=== PATIENT | female | born 1960 | race Caucasian/White ===

== ENCOUNTER 2020-10-05 17:03 | Inpatient (IN) ==
[2020-10-05] MEDS ORDERED: MoRPHine SULFATE 4 MG/ML 1 ML CARP\\VIAL IV STA (17:30)
[2020-10-05] MEDS ORDERED: ONDANSETRON INJ 2 MG/ML 2 ML VIAL IV STA (17:30)
[2020-10-05] MEDS ORDERED: SODIUM CHLORIDE 0.9% 1000ML 1,000 ML IV ONE (17:38)
--- NOTE | 2020-10-05 17:38 | Emergency Department Note ---
History of Present Illness General Chief complaint: Kidney Stone Stated complaint: KIDNEY STONE - PAIN IN SIDE Time Seen by Provider: 10/05/20 17:15 History of Present Illness Maximum Pain Intensity: 8 60-year-old female who presents emergency department with complaint of intermittent right flank pain, urinary discomfort and fever. The patient reports that she developed flank pain approximately 2 weeks ago. It lasted for a few days, then improved. 2 days ago, she reported that the pain came back and was much worse. She has had chills and a home temperature of 102.4 F. She reports urinary frequency and dysuria, but denies any significant nausea or vomiting. The patient does report a remote history of a kidney stone, and reports that this feels similar. She is status post cholecystectomy and total abdominal hysterectomy. As far as she knows, she still has her appendix. She denies any significant alleviating or aggravating factors for the pain, and currently rates her discomfort an 8 out of 10. Home Medications Medication Instructions Recorded Confirmed Type aspirin [Aspirin Low Dose] 81 mg PO DAILY 10/05/20 10/05/20 History atorvastatin 20 mg PO DAILY 10/05/20 10/05/20 History Allergies Allergy/AdvReac Type Severity Reaction Status Date / Time No Known Allergies Allergy Unverified 10/05/20 20:58 Past Med/Surg History Medical History Kidney stones Surgical History Status post total abdominal hysterectomy Social History Smoking Status: Current every day smoker Tobacco Type: Cigarettes Preferred Language: [place] marital status: Current Living Situation: Spouse current occupational status: employed Feels Safe at Home: Yes Review of Systems 10 system review was performed and was negative except for pertinent positives and negatives as indicated in history of present illness Physical Exam Vital Signs Vital Signs - 24 hr 10/05/20 17:06 10/05/20 20:00 10/05/20 20:10 Temperature 36.9 C Temperature Source Temporal Artery Scan Pulse Rate 112 H Pulse Rate from SpO2 Sensor Respiratory Rate 18 Respiratory Effort / Characteristics Non-Labored Spontaneous Respiratory Depth Normal Respiratory Pattern Regular Blood Pressure 135/82 Blood Pressure Mean 99 Pulse Oximetry 94 96 Oxygen Delivery Method Room Air Room Air Sepsis Recent Fever Within 48 Hours No Sepsis New/Unexplained Change in Mental Status N/A Sepsis Action Taken by Nursing No Action Required 10/05/20 21:10 Temperature Temperature Source Pulse Rate 91 H Pulse Rate from SpO2 Sensor 91 H Respiratory Rate 20 Respiratory Effort / Characteristics Respiratory Depth Respiratory Pattern Blood Pressure 118/67 Blood Pressure Mean 84 Pulse Oximetry 94 Oxygen Delivery Method Room Air Sepsis Recent Fever Within 48 Hours Sepsis New/Unexplained Change in Mental Status Sepsis Action Taken by Nursing CONSTITUTIONAL: Healthy and well nourished. Patient appears in mild to moderate discomfort. HEENT: Normocephalic, atraumatic. No scleral icterus or conjunctival injection/pallor. NECK: Full active range of motion without discomfort. No nuchal rigidity. LYMPHATICS: No cervical chain adenopathy. RESPIRATORY: Clear to auscultation bilaterally with no wheezing, crackles, rhonchi or stridor. CARDIOVASCULAR: Regular rate and rhythm with no murmurs, rubs or gallops. GASTROINTESTINAL: Bowel sounds present in all quadrants. Abdomen is soft and n ontender to palpation without McBurney's point tenderness, rigidity, guarding or rebound. Negative CVA tenderness. MUSCULOSKELETAL: Full range of motion of all joints without discomfort. No tenderness to palpation through the ribs or thoracolumbar paraspinous muscles. Negative logroll of the right hip, and negative straight leg raise. INTEGUMENTARY: No rash or other significant dermatologic conditions noted. HEMATOLOGIC: No ecchymosis or petechiae. PSYCHIATRIC: Positive affect. NEUROLOGIC: No focal neurologic deficits noted. Course Course Patient history and physical exam were performed. Nurses notes were reviewed. Vital signs were reviewed, showing a mild tachycardia of 112 bpm. The patient is otherwise afebrile and normotensive. IV access was established, and labs were drawn. The patient was hydrated with a liter of normal saline, and administered IV morphine and Zofran for pain. Review of labs shows a significant leukocytosis with a white count of 31,800, left shift and 9% bands. Patient is mildly hypokalemic at 3.4. Creatinine is 1.54, LFTs and lipase are normal. Urinalysis shows 2+ proteinuria, 2+ hematuria, leukocyte esterases and elevated white count and bacteria. There was moderate urine contamination with 5-10 epithelial cells. Urine cultures are pending. Noncontrast CT of the abdomen and pelvis is suggestive of pyelonephritis without evidence for obstructive uropathy or ureteral calculus. No other acute intra-abdominal findings are noted. Findings were discussed with the patient, as well as Dr. Modi, ED attending physician, who recommended Rocephin 1 g IV infusion, as well as additional blood cultures, lactate level and IV hydration. An order was placed for IV Rocephin and an additional liter of normal saline, along with blood cultures. Lactate level was normal. Procalcitonin is significantly elevated at 22.65. The patient reported adequate pain and nausea control. The case was further discussed with Dr. Dixon, [facility] hospitalist, who came to the emergency department for further evaluation. Please see his dictation for further treatment and final disposition. Administered Medications Discontinued Medications Sodium Chloride (Nss 1000ml) 1,000 mls @ 999 mls/hr IV .Q1H1M ONE Stop: 10/05/20 18:38 Last Infusion: 10/05/20 21:50 Dose: 0 mls/hr Documented by: [id number] Admin: 10/05/20 20:09 Dose: 999 mls/hr Documented by: [id number] Ceftriaxone Sodium (Rocephin) 1,000 mg in 50 mls @ 100 mls/hr IV NOW STA Stop: 10/05/20 21:59 Last Admin: 10/05/20 22:40 Dose: 100 mls/hr Documented by: [id number] Sodium Chloride (Nss 1000ml) 1,000 mls @ 999 mls/hr IV .Q1H1M STA Stop: 10/05/20 22:34 Last Admin: 10/05/20 22:40 Dose: 999 mls/hr Documented by: [id number] Morphine Sulfate (Morphine Sulfate 4 Mg/Ml 1 Ml Carp\Vial) 4 mg IV NOW STA Stop: 10/05/20 17:31 Last Admin: 10/05/20 20:09 Dose: 4 mg Documented by: [id number] Morphine Sulfate (Morphine Sulfate 4 Mg/Ml 1 Ml Carp\Vial) Confirm Administered Dose 4 mg .ROUTE .STK-MED ONE Stop: 10/05/20 20:08 Last Admin: 10/05/20 20:10 Dose: Not Given Documented by: [id number] Ondansetron HCl (Ondansetron Inj 2 Mg/Ml 2 Ml Vial) 4 mg IV NOW STA Stop: 10/05/20 17:31 Last Admin: 10/05/20 20:09 Dose: 4 mg Documented by: [id number] Ondansetron HCl (Ondansetron Inj 2 Mg/Ml 2 Ml Vial) Confirm Administered Dose 4 mg .ROUTE .STK-MED ONE Stop: 10/05/20 20:08 Last Admin: 10/05/20 20:10 Dose: Not Given Documented by: [id number] Medical Decision Making Medical Records Attestation: I reviewed the patient's medical records. Home Medications Current Medication List: was personally reviewed by me Laboratory Data Attestation: I reviewed the patient's lab results. Result diagrams: 10/05/20 18:05 10/05/20 18:05 Lab Results 10/05/20 10/05/20 10/05/20 Range/Units 18:05 18:05 20:00 WBC 31.80 H* (4.8-10.8) K/uL RBC 3.75 L (4.2-5.4) M/uL Hgb 12.3 (12.0-16.0) g/dL Hct 36.2 L (37-47) % MCV 96.5 (80-100) fL MCH 32.8 (25-34) pg MCHC 34.0 (32-36) g/dL RDW Std Deviation 47.0 H (36.4-46.3) fL RDW Coeff of Murray 13.3 (11.5-14.5) % Plt Count 249 (130-400) K/uL MPV 10.6 H (7.4-10.4) fL Immature Gran % (Auto) 0.3 % Neut % (Auto) 93.1 % Lymph % (Auto) 2.7 % [place] % (Auto) 3.8 % Eos % (Auto) 0.0 % Baso % (Auto) 0.1 % Neut # (Auto) 29.61 H (1.4-6.5) K/uL Lymph # (Auto) 0.87 L (1.2-3.4) K/uL [place] # (Auto) 1.21 H (0.11-0.59) K/uL Eos # (Auto) 0.00 (0-0.5) K/uL Baso # (Auto) 0.02 (0-0.2) K/uL Immature Gran # (Auto) 0.09 H (0.00-0.02) K/uL Sodium 141 (136-145) mmol/L Potassium 3.4 L (3.5-5.1) mmol/L Chloride 106 (98-107) mmol/L Carbon Dioxide 25 (21-32) mmol/L Anion Gap 10.0 (3-11) BUN 21 H (7-18) mg/dl Creatinine 1.54 H (0.6-1.2) mg/dl Est Cr Clr Drug Dosing 35.5 ml/min Est GFR ( Amer) 41.5 Est GFR (Non-Af Amer) 35.8 BUN/Creatinine Ratio 13.5 (10-20) Glucose 90 (70-99) mg/dl Lactate (0.4-2.0) mmol/L Calcium 8.2 L (8.5-10.1) mg/dl Total Bilirubin 0.6 (0.2-1) mg/dl AST 8 L (15-37) U/L ALT 12 (12-78) U/L Alkaline Phosphatase 99 (45-117) U/L Total Protein 6.2 L (6.4-8.2) gm/dl Albumin 2.4 L (3.4-5.0) gm/dl Globulin 3.8 (2.5-4.0) gm/dl Albumin/Globulin Ratio 0.6 L (0.9-2) Lipase 75 (73-393) U/L Procalcitonin (0-0.5) ng/ml Urine Color Yellow Urine Appearance Cloudy A (Clear) Urine pH 6.0 (4.5-7.5) Ur Specific Foss 1.012 (1.000-1.030) Urine Protein 2+ H (Negative) Urine Glucose (UA) Negative (Negative) Urine Ketones Trace H (Negative) Urine Blood 2+ H (Negative) Urine Nitrite Negative (Negative) Urine Bilirubin Negative (Negative) Urine Urobilinogen Negative (Negative) Ur Leukocyte Esterase 2+ H (Negative) Urine WBC (Auto) >30 H (0-5) /hpf Urine RBC (Auto) 10-30 H (0-4) /hpf U Hyaline Cast (Auto) 1-5 (0-5) /lpf U Epithel Cells (Auto) 5-10 H (0-5) /lpf Urine Bacteria (Auto) 4+ H (Negative) COVID-19 Eval Order SARS-CoV-2, RNA, NAAT (NEGATIVE) 10/05/20 10/05/20 10/05/20 Range/Units 22:05 22:05 22:20 WBC (4.8-10.8) K/uL RBC (4.2-5.4) M/uL Hgb (12.0-16.0) g/dL Hct (37-47) % MCV (80-100) fL MCH (25-34) pg MCHC (32-36) g/dL RDW Std Deviation (36.4-46.3) fL RDW Coeff of Murray (11.5-14.5) % Plt Count (130-400) K/uL MPV (7.4-10.4) fL Immature Gran % (Auto) % Neut % (Auto) % Lymph % (Auto) % [place] % (Auto) % Eos % (Auto) % Baso % (Auto) % Neut # (Auto) (1.4-6.5) K/uL Lymph # (Auto) (1.2-3.4) K/uL [place] # (Auto) (0.11-0.59) K/uL Eos # (Auto) (0-0.5) K/uL Baso # (Auto) (0-0.2) K/uL Immature Gran # (Auto) (0.00-0.02) K/uL Sodium (136-145) mmol/L Potassium (3.5-5.1) mmol/L Chloride (98-107) mmol/L Carbon Dioxide (21-32) mmol/L Anion Gap (3-11) BUN (7-18) mg/dl Creatinine (0.6-1.2) mg/dl Est Cr Clr Drug Dosing ml/min Est GFR ( Amer) Est GFR (Non-Af Amer) BUN/Creatinine Ratio (10-20) Glucose (70-99) mg/dl Lactate 1.2 (0.4-2.0) mmol/L Calcium (8.5-10.1) mg/dl Total Bilirubin (0.2-1) mg/dl AST (15-37) U/L ALT (12-78) U/L Alkaline Phosphatase (45-117) U/L Total Protein (6.4-8.2) gm/dl Albumin (3.4-5.0) gm/dl Globulin (2.5-4.0) gm/dl Albumin/Globulin Ratio (0.9-2) Lipase (73-393) U/L Procalcitonin (0-0.5) ng/ml Urine Color Urine Appearance (Clear) Urine pH (4.5-7.5) Ur Specific Foss (1.000-1.030) Urine Protein (Negative) Urine Glucose (UA) (Negative) Urine Ketones (Negative) Urine Blood (Negative) Urine Nitrite (Negative) Urine Bilirubin (Negative) Urine Urobilinogen (Negative) Ur Leukocyte Esterase (Negative) Urine WBC (Auto) (0-5) /hpf Urine RBC (Auto) (0-4) /hpf U Hyaline Cast (Auto) (0-5) /lpf U Epithel Cells (Auto) (0-5) /lpf Urine Bacteria (Auto) (Negative) COVID-19 Eval [email or web address] SARS-CoV-2, RNA, NAAT NEGATIVE (NEGATIVE) 10/05/20 Range/Units 22:20 WBC (4.8-10.8) K/uL RBC (4.2-5.4) M/uL Hgb (12.0-16.0) g/dL Hct (37-47) % MCV (80-100) fL MCH (25-34) pg MCHC (32-36) g/dL RDW Std Deviation (36.4-46.3) fL RDW Coeff of Murray (11.5-14.5) % Plt Count (130-400) K/uL MPV (7.4-10.4) fL Immature Gran % (Auto) % Neut % (Auto) % Lymph % (Auto) % [place] % (Auto) % Eos % (Auto) % Baso % (Auto) % Neut # (Auto) (1.4-6.5) K/uL Lymph # (Auto) (1.2-3.4) K/uL [place] # (Auto) (0.11-0.59) K/uL Eos # (Auto) (0-0.5) K/uL Baso # (Auto) (0-0.2) K/uL Immature Gran # (Auto) (0.00-0.02) K/uL Sodium (136-145) mmol/L Potassium (3.5-5.1) mmol/L Chloride (98-107) mmol/L Carbon Dioxide (21-32) mmol/L Anion Gap (3-11) BUN (7-18) mg/dl Creatinine (0.6-1.2) mg/dl Est Cr Clr Drug Dosing ml/min Est GFR ( Amer) Est GFR (Non-Af Amer) BUN/Creatinine Ratio (10-20) Glucose (70-99) mg/dl Lactate (0.4-2.0) mmol/L Calcium (8.5-10.1) mg/dl Total Bilirubin (0.2-1) mg/dl AST (15-37) U/L ALT (12-78) U/L Alkaline Phosphatase (45-117) U/L Total Protein (6.4-8.2) gm/dl Albumin (3.4-5.0) gm/dl Globulin (2.5-4.0) gm/dl Albumin/Globulin Ratio (0.9-2) Lipase (73-393) U/L Procalcitonin 22.65 H (0-0.5) ng/ml Urine Color Urine Appearance (Clear) Urine pH (4.5-7.5) Ur Specific Foss (1.000-1.030) Urine Protein (Negative) Urine Glucose (UA) (Negative) Urine Ketones (Negative) Urine Blood (Negative) Urine Nitrite (Negative) Urine Bilirubin (Negative) Urine Urobilinogen (Negative) Ur Leukocyte Esterase (Negative) Urine WBC (Auto) (0-5) /hpf Urine RBC (Auto) (0-4) /hpf U Hyaline Cast (Auto) (0-5) /lpf U Epithel Cells (Auto) (0-5) /lpf Urine Bacteria (Auto) (Negative) COVID-19 Eval Order SARS-CoV-2, RNA, NAAT (NEGATIVE) Imaging Data Attestation: I personally reviewed and interpreted this imaging study as follows: My Impression: My interpretation of a noncontrast CT of the abdomen and pelvis is suggestive of a pyelonephritis without obstructive uropathy or ureteral calculus. No other acute intra-abdominal findings such as diverticulitis, appendicitis, bowel obstruction or free air. [facility] report was reviewed, with local radiologist report pending. Radiologist's Impression: [facility] report: CT ABDOMEN & PELVIS Without Contrast: Inflammatory changes around the right kidney however no visualized obstructing stone. Consider infection or a recently passed stone. There is some scarring in the right renal lower pole in nonobstructing stones in the right renal lower pole. The left kidney is mildly atrophic with multiple nonobstructing calcifications. Hysterectomy and cholecystectomy. Otherwise unremarkable appearance of the solid organs and GI tract. Colonic diverticulosis without diverticulitis. Radiologist: Isaiah Barcenas MD Blood Pressure Blood Pressure Findings: Normal blood pressure MDM Narrative Patient presents to emergency department with complaint of right flank pain, fever and urinary symptoms that started 2 weeks ago, was intermittent in nature, and then worsened over the past 48 hours. Today's work-up is concerning for pyelonephritis. The patient was febrile at home, but has been afebrile in the emergency department. She is not hypotensive or tachycardic. She does have a significant leukocytosis with left shift and bandemia. She has a normal lactate level, but significantly elevated procalcitonin. She also has evidence for acute kidney injury. Review of hospitalist dictation shows that the patient does have history of stage III chronic kidney disease with a normal baseline creatinine of 1. Impression & Plan Pyelonephritis, Acute kidney injury superimposed on chronic kidney disease Discharge Plan Visit Data Chief Complaint: Kidney Stone Stated Complaint: KIDNEY STONE - PAIN IN SIDE ED Provider: Kesha Modi ED Midlevel Provider: Edu Yeh Discharge Problem: Pyelonephritis, Acute kidney injury superimposed on chronic kidney disease Forms Stand Alone Forms: My [facility] [place] APProtect Prescriptions Prescriptions: No Action atorvastatin 20 mg Tablet 20 mg PO DAILY RF: 0 aspirin [Aspirin Low Dose] 81 mg Tablet,Delayed Release (Dr/Ec) 81 mg PO DAILY RF: 0
[2020-10-05 19:10] LABS: Hematocrit (blood only) 36.2 % (37-47); Hemoglobin 12.3 g/dL (12.0-16.0); Mean Corpuscular Hemoglobin 32.8 pg (25-34); Mean Corpuscular Volume 96.5 fL (80-100); Mean Platelet Volume 10.6 fL (7.4-10.4); Platelet Count 249 K/uL (130-400); RDW Coefficient of Variation 13.3 % (11.5-14.5); Red Blood Count 3.75 M/uL (4.2-5.4)
[2020-10-05 19:12] LABS: Albumin Level 2.4 gm/dl (3.4-5.0); BUN Creatinine Ratio 13.5 (10-20); Calcium 8.2 mg/dl (8.5-10.1); Creatinine Clr Calc Pharmacy 35.5 ml/min; Est GFR (African American) 41.5; Est GFR (Non-African American) 35.8; Potassium 3.4 mmol/L (3.5-5.1)
[2020-10-05 19:15] LABS: Albumin Globulin Ratio 0.6 (0.9-2); Basophils # (auto) 0.02 K/uL (0-0.2); Basophils % (auto) 0.1 %; Bilirubin,Total 0.6 mg/dl (0.2-1); Globulin 3.8 gm/dl (2.5-4.0); Immature Granulocytes # (auto) 0.09 K/uL (0.00-0.02); Immature Granulocytes % (auto) 0.3 %; Lymphocytes # (auto) 0.87 K/uL (1.2-3.4); Lymphocytes % (auto) 2.7 %; Monocytes # (auto) 1.21 K/uL (0.11-0.59); Monocytes % (auto) 3.8 %; Neutrophils # (auto) 29.61 K/uL (1.4-6.5); Neutrophils % (auto) 93.1 %; Total Protein 6.2 gm/dl (6.4-8.2)
[2020-10-05] MEDS ORDERED: MoRPHine SULFATE 4 MG/ML 1 ML CARP\\VIAL ONE (20:07)
[2020-10-05] MEDS ORDERED: ONDANSETRON INJ 2 MG/ML 2 ML VIAL ONE (20:07)
[2020-10-05 20:28] LABS: Appearance Urine Cloudy (Clear); Bacteria Urine Automated 4+ (Negative); Bilirubin Urine Negative (Negative); Blood Urine 2+ (Negative); Color Urine Yellow; Glucose Urine UA Negative (Negative); Ketones Urine Trace (Negative); Leukocyte Esterase Urine 2+ (Negative); Nitrite Urine Negative (Negative); Protein Urine 2+ (Negative); Specific Gravity Urine 1.012 (1.000-1.030); Urobilinogen Urine Negative (Negative); WBC Urine Automated >30 /hpf (0-5)
[2020-10-05] MEDS: cefTRIAXone SODIUM 1,000 MG/50 ML BAG IV STA ×2 (21:49→22:40)
[2020-10-05] MEDS: SODIUM CHLORIDE 0.9% 1000ML 1,000 ML IV STA ×2 (21:49→22:40)
--- NOTE | 2020-10-05 23:00 | History and Physical Report ---
DATE OF ADMISSION: 10/05/2020 CHIEF COMPLAINT: Abdominal pain. HISTORY OF PRESENT ILLNESS: A 60-year-old female with past medical history significant for hyperlipidemia, chronic kidney disease stage III, history of kidney stones, who presents with right sided abdominal pain since last Tuesday, having fever and chills, poor appetite, not able to eat anything. She came to the ER and found to have acute kidney injury, UTI, possible pyelonephritis. CAT scan showed possible passed stone. Pain was about 8/10 in severity. She also says she had 3 episodes of diarrhea today, but that seems to have stopped. Denies any chest pain, no shortness of breath, no cough, no headache, no blurred vision, no earache, no runny nose, no sore throat. Normal bowel movements. She says she is peeing a lot and has difficulty controlling. Currently resting comfortably and hemodynamically stable. ALLERGIES: No known drug allergies. PAST MEDICAL HISTORY: As mentioned above. PAST SURGICAL HISTORY: Left total knee arthroplasty, cholecystectomy, cystourethroscopy with lithotripsy, cystoscopy, repair of ureter, bilateral ureteral transplant with skin, right shoulder arthroscopy, total abdominal hysterectomy with removal of tubes. MEDICATIONS: Atorvastatin 20 mg p.o. daily and aspirin 81 mg p.o. daily. FAMILY HISTORY: Significant for mother has arthritis, asthma, CAD, osteoporosis. Father has diabetes, CAD. SOCIAL HISTORY: , smokes half a pack a day for last 30 years. Alcohol once or twice per month. No drug use. REVIEW OF SYSTEMS: As per HPI. Rest of review of systems negative. PHYSICAL EXAMINATION: GENERAL: The patient is of moderate build, not in acute distress. VITAL SIGNS: Temperature 36.9, pulse 91, blood pressure 118/67, respiratory rate 20, oxygen 94% on room air. HEENT: Pupils equal, round, reactive to light. Oral mucosa moist. NECK: No JVD. No neck masses. CARDIOVASCULAR: S1, S2 heard, regular rate and rhythm, no murmur, no gallop. RESPIRATORY SYSTEM: Normal AP diameter. No accessory muscle use. No wheezing, no crackles. ABDOMEN: Soft, bowel sounds present, nontender, no distention. No guarding, no rigidity. No CVA tenderness. CENTRAL NERVOUS SYSTEM: Cranial nerves II-XII grossly intact, nonfocal. EXTREMITIES: No edema, no erythema. LABORATORY DATA: WBC 31, hemoglobin 12.3, hematocrit 36.2, platelets 249. Sodium 141, potassium 3.4, chloride 106, bicarbonate 25, BUN 21, creatinine 1.5, serum glucose 90, calcium 8.2, total bilirubin 0.6, AST 8, ALT 12, alkaline phosphatase 99, lipase 175. Urinalysis, +2 leukocyte esterase, +4 bacteria. IMAGING: CT of abdomen and pelvis, preliminary report without contrast, inflammatory change around the right kidney; however, no visualized obstructing stone. Consider infection or recently passed stone. There is some scarring and nonobstructing stones in the right renal lower pole; the left kidney is mildly atrophic with multiple nonobstructing calcifications, hysterectomy and cholecystectomy, otherwise unremarkable appearance of solid organs and GI tract. Colonic diverticulosis without diverticulitis. ASSESSMENT AND PLAN: This 60-year-old female presents with abdominal pain, found to have pyelonephritis. 1. Pyelonephritis, possible passed kidney stone and also has non obstructing renal stones. We will follow the final report of the CAT scan. Got Rocephin in the ER. We will continue Rocephin. Follow the cultures and we will place her on IV fluids. Monitor in the medical floor. 2. Diarrhea. Three episodes which seemed to have stopped, but will check stool for Clostridium difficile and stool cultures because of significant leukocytosis. 3. Leukocytosis, significant. Possible leukemoid reaction, possible secondary to ongoing infection. We will follow the repeat labs. 4. Acute kidney injury on chronic kidney disease stage III, baseline creatinine is 1, present creatinine 1.5. Avoid nephrotoxic agents. Getting fluids. We will follow the repeat labs in a.m. 5. History of hyperlipidemia. Continue statin. 6. Deep vein thrombosis prophylaxis, sequential compression devices. DISPOSITION: Closely monitor in medical floor. Expect discharge home and follow with family doctor. Level 1 full code. MTDD
[2020-10-05] MEDS: D5W AND NSS 1,000 ML IV SCH (23:52)
[2020-10-05] MEDS ORDERED: MoRPHine SULFATE 4 MG/ML 1 ML CARP\\VIAL IV PRN (23:53)
[2020-10-05] MEDS ORDERED: ACETAMINOPHEN 325 MG TAB PO PRN (23:53)
[2020-10-05] MEDS ORDERED: POLYETHYLENE (MIRALAX) 17 GM PACK PO PRN (23:53)
[2020-10-05] MEDS ORDERED: ONDANSETRON INJ 2 MG/ML 2 ML VIAL IV PRN (23:53)
[2020-10-06 05:35] LABS: Basophils # (auto) 0.01 K/uL (0-0.2); Eosinophils # (auto) 0.05 K/uL (0-0.5); Eosinophils % (auto) 0.2 %; Hematocrit (blood only) 31.2 % (37-47); Hemoglobin 10.6 g/dL (12.0-16.0); Immature Granulocytes # (auto) 0.06 K/uL (0.00-0.02); Immature Granulocytes % (auto) 0.3 %; Lymphocytes # (auto) 1.19 K/uL (1.2-3.4); Lymphocytes % (auto) 5.8 %; Mean Corpuscular Hemoglobin 32.7 pg (25-34); Mean Corpuscular Volume 96.3 fL (80-100); Mean Platelet Volume 10.1 fL (7.4-10.4); Monocytes # (auto) 0.81 K/uL (0.11-0.59); Neutrophils # (auto) 18.35 K/uL (1.4-6.5); Neutrophils % (auto) 89.7 %; Platelet Count 202 K/uL (130-400); RDW Coefficient of Variation 13.4 % (11.5-14.5); RDW Standard Deviation 46.7 fL (36.4-46.3); Red Blood Count 3.24 M/uL (4.2-5.4); White Blood Count 20.47 K/uL (4.8-10.8)
[2020-10-06 06:26] LABS: BUN Creatinine Ratio 12.6 (10-20); Calcium 7.2 mg/dl (8.5-10.1); Creatinine Clr Calc Pharmacy 39.3 ml/min; Est GFR (Non-African American) 40.5; Magnesium 1.8 mg/dl (1.8-2.4); Potassium 3.2 mmol/L (3.5-5.1)
--- NOTE | 2020-10-06 08:55 | CT Scan Report ---
ABDOMEN AND PELVIS CT WITHOUT CONTRAST CT DOSE: 338.18 mGy.cm HISTORY: Right flank pain. TECHNIQUE: Multiaxial CT images of the abdomen and pelvis were performed without contrast. A dose lo wering technique was utilized adhering to the principles of ALARA. COMPARISON STUDY: None. FINDINGS: The lung bases are clear. No pneumoperitoneum. No pneumatosis. No fractures within the visu alized osseous structures. Mild hepatic steatosis. Cholecystectomy. The unenhanced spleen, adrenal gl ands, and pancreas are within normal limits. There is an atrophic left kidney containing multiple cor tical calcifications. There may also be a few nonobstructing calculi within the left kidney. There is moderate right perinephric fat stranding. There is mild focal scarring within the right kidney. Ther e are a few calcifications within the lower pole the right kidney which may be cortical. The punctate stone within the lower pole may represent a nonobstructing renal calculus. There is mild right uroth elial thickening within the pelvis and ureter. No hydronephrosis. No ureteral stones. No bladder ston es. No retroperitoneal lymphadenopathy. Hysterectomy. Suboptimal evaluation for bowel pathology due t o the lack of intravenous and oral contrast. However, there is no definite bowel wall thickening or o bstruction. IMPRESSION: 1. Right perinephric fat stranding and right-sided urothelial thickening without associated hydroneph rosis or ureteral stone. Findings favor a pyelonephritis/pyelitis. Recommend correlation with urinaly sis. A recently passed stone could also have a similar appearance. 2. Multiple bilateral renal calcifications, the majority which appear to be cortical. There may be a few small nonobstructing renal calculi within the kidneys. 3. No definite bowel wall thickening or obstruction. 4. Prior hysterectomy and cholecystectomy. 5. Atrophic left kidney. ACT 112: Negative or not required by law. Electronically signed by: Niles López M.D. 10/06/2020 8:54 AM
[2020-10-06] MEDS: ATORVASTATIN 20 MG TAB PO SCH (08:57)
[2020-10-06] MEDS: ASPIRIN 81 MG ECTAB PO SCH (08:57)
[2020-10-06] MEDS: D5W AND NSS 1,000 ML IV SCH ×2 (08:57→16:48)
--- NOTE | 2020-10-06 19:13 | Hospitalist Progress Note ---
Date of Service October 06, 2020 Assessment & Plan (1) Pyelonephritis: cont on empiric Abx with IV rocephin follow urine culture (2) Acute kidney injury superimposed on chronic kidney disease: due to above Cr improved to baseline with IV fluid pt is encouraged to increased PO intake of fluid Disposition : possible dc home in AM if medically stable Admission and Anticipated Discharge Date Admission Date: October 05, 2020 Subjective Follow up visit for Pyelonephritis , acute renal failure Pt reports of feeling much better since admission no fever or chills no abdominal pain /no flank pain or nausea tolerating diet denies of any GI or symptoms Review of Systems Review of Systems: All systems reviewed & are unremarkable except as noted in Subjective Physical Exam Physical Exam: Physical exam: General: No acute distress, alert awake oriented x3 HEENT: PERRLA, EOMI, Heart: Regular S1-S2, no carotid bruit, no JVD, no lower extremity edema Lungs: Clear to auscultate, no wheeze or rales Abdomen: Soft nontender, no organomegaly Extremity: No cyanosis, no deformity, normal strength 5 out of 5 with upper and lower Neuro: No focal neurological deficit normal speech, normal visual field, Motor strength : normal both upper and lower extremity, sensation intact Psych: Alert awake oriented x3, normal affect Results & Data Results & Data ([facility]) Vital Signs (Past 12 Hours) Vital Signs Temp Pulse Resp BP Pulse Ox 10/06/20 16:12 37.1 C 10/06/20 14:56 37.5 C 86 16 133/75 92 10/06/20 07:28 37.0 C 95 H 16 128/79 90
[2020-10-06] MEDS ORDERED: cefTRIAXone SODIUM 1,000 MG in DEXTROSE 5% 50 ML IV SCH (20:00)
[2020-10-07] MEDS: D5W AND NSS 1,000 ML IV SCH ×2 (00:59→10:10)
[2020-10-07] MEDS: ASPIRIN 81 MG ECTAB PO SCH (07:58)
[2020-10-07] MEDS: ATORVASTATIN 20 MG TAB PO SCH (07:58)
[2020-10-07 08:13] LABS: Basophils # (auto) 0.01 K/uL (0-0.2); Basophils % (auto) 0.1 %; Eosinophils # (auto) 0.09 K/uL (0-0.5); Eosinophils % (auto) 1.2 %; Hematocrit (blood only) 30.3 % (37-47); Hemoglobin 10.2 g/dL (12.0-16.0); Immature Granulocytes # (auto) 0.01 K/uL (0.00-0.02); Immature Granulocytes % (auto) 0.1 %; Lymphocytes # (auto) 0.97 K/uL (1.2-3.4); Lymphocytes % (auto) 12.5 %; Mean Corpuscular Hemoglobin 32.7 pg (25-34); Mean Corpuscular Hgb Conc 33.7 g/dL (32-36); Mean Corpuscular Volume 97.1 fL (80-100); Mean Platelet Volume 10.3 fL (7.4-10.4); Monocytes # (auto) 0.66 K/uL (0.11-0.59); Monocytes % (auto) 8.5 %; Neutrophils # (auto) 6.05 K/uL (1.4-6.5); Neutrophils % (auto) 77.6 %; Platelet Count 180 K/uL (130-400); RDW Coefficient of Variation 13.4 % (11.5-14.5); RDW Standard Deviation 47.3 fL (36.4-46.3); Red Blood Count 3.12 M/uL (4.2-5.4); White Blood Count 7.79 K/uL (4.8-10.8)
[2020-10-07 08:52] LABS: BUN Creatinine Ratio 7.7 (10-20); Creatinine Clr Calc Pharmacy 39.6 ml/min; Est GFR (African American) 47.4; Est GFR (Non-African American) 40.9; Potassium 3.1 mmol/L (3.5-5.1)
--- NOTE | 2020-10-07 14:42 | Hospitalist Progress Note ---
Date of Service October 07, 2020 Assessment & Plan (1) Pyelonephritis: UTI: Urine culture E. coli multi drug resistant-ESBL Leukocytosis has normalized, WBC: 30K-20K-7 K today Stable vitals Was on IV Rocephin, Patient will be discharged with p.o. Augmentin per sensitivity. Hypokalemia: Patient is discharged with p.o. potassium supplement, Repeat BMP with next physician visit SIRS symptom with acute renal failure: Presented with SIRS-like symptoms with significant leukocytosis, tachycardia, acute renal failure secondary to complicated urinary tract infection tract infection/multidrug-resistant E. coli UTI/acute renal failure on CKD stage III Symptom has resolved Normal white count, renal function back to baseline, no fever or chills, Source of infection ESBL E. coli UTI Antibiotic as above (2) Acute kidney injury superimposed on chronic kidney disease: due to above Cr improved to baseline with IV fluid pt is encouraged to increased PO intake of fluid Disposition : Stable to be discharged home today Admission and Anticipated Discharge Date Admission Date: October 05, 2020 Subjective Follow up visit for Pyelonephritis , acute renal failure Patient feels well, no fever or chills, no GI or symptoms, Energy and appetite back to baseline, Stable to be discharged home today Review of Systems Review of Systems: All systems reviewed & are unremarkable except as noted in Subjective Physical Exam Physical Exam: Physical exam: General: No acute distress, alert awake oriented x3 HEENT: PERRLA, EOMI, Heart: Regular S1-S2, no carotid bruit, no JVD, no lower extremity edema Lungs: Clear to auscultate, no wheeze or rales Abdomen: Soft nontender, no organomegaly Extremity: No cyanosis, no deformity, normal strength 5 out of 5 with upper and lower Neuro: No focal neurological deficit normal speech, normal visual field, Motor strength : normal both upper and lower extremity, sensation intact Psych: Alert awake oriented x3, normal affect Results & Data Results & Data ([facility]) Vital Signs (Past 12 Hours) Vital Signs Temp Pulse Resp BP Pulse Ox 10/07/20 13:39 36.9 C 83 16 149/80 H 91 10/07/20 07:48 36.9 C 83 16 149/80 H 91
--- NOTE | 2020-10-07 16:16 | Discharge Summary ---
Date of Service October 07, 2020 Admission HPI Per Admitting Provider DICTATED BY: Tyree Dixon MD DATE OF ADMISSION: 10/05/2020 CHIEF COMPLAINT: Abdominal pain. HISTORY OF PRESENT ILLNESS: A 60-year-old female with past medical history significant for hyperlipidemia, chronic kidney disease stage III, history of kidney stones, who presents with right sided abdominal pain since last Tuesday, having fever and chills, poor appetite, not able to eat anything. She came to the ER and found to have acute kidney injury, UTI, possible pyelonephritis. CAT scan showed possible passed stone. Pain was about 8/10 in severity. She also says she had 3 episodes of diarrhea today, but that seems to have stopped. Denies any chest pain, no shortness of breath, no cough, no headache, no blurred vision, no earache, no runny nose, no sore throat. Normal bowel movements. She says she is peeing a lot and has difficulty controlling. Currently resting comfortably and hemodynamically stab Principal Diagnosis Abdominal Pain /Pyelonephritis /UTI acute renal failure due to dehydration Discharge Exam Physical exam: General: No acute distress, alert awake oriented x3 HEENT: PERRLA, EOMI, Heart: Regular S1-S2, no carotid bruit, no JVD, no lower extremity edema Lungs: Clear to auscultate, no wheeze or rales Abdomen: Soft nontender, no organomegaly Extremity: No cyanosis, no deformity, normal strength 5 out of 5 with upper and lower Neuro: No focal neurological deficit normal speech, normal visual field, Motor strength : normal both upper and lower extremity, sensation intact Psych: Alert awake oriented x3, normal affect Discharge Data Allergies Allergy/AdvReac Type Severity Reaction Status Date / Time No Known Allergies Allergy Unverified 10/05/20 20:58 Consultations 10/05/20 21:30 ED Decision to Admit Stat Ordered Studies 10/05/20 17:30 CT abd pelvis wo con Urgent Hospital Course (1) Pyelonephritis: UTI: Urine culture E. coli multi drug resistant-ESBL Leukocytosis has normalized, WBC: 30K-20K-7 K today Stable vitals Was on IV Rocephin, Patient will be discharged with p.o. Augmentin per sensitivity. Hypokalemia: Patient is discharged with p.o. potassium supplement, Repeat BMP with next physician visit SIRS symptom with acute renal failure: Presented with SIRS-like symptoms with significant leukocytosis, tachycardia, acute renal failure secondary to complicated urinary tract infection tract infec tion/multidrug-resistant E. coli UTI/acute renal failure on CKD stage III Symptom has resolved Normal white count, renal function back to baseline, no fever or chills, Source of infection ESBL E. coli UTI Antibiotic as above (2) Acute kidney injury superimposed on chronic kidney disease: due to above Cr improved to baseline with IV fluid pt is encouraged to increased PO intake of fluid Disposition : Stable to be discharged home today Total Time Total Time Spent Total Time Spent (In Minutes): 35 minutes Total Time Includes: Examination of the Patient, Discharge Planning and Medication Reconciliation Discharge Plan Discharge Items Patient Disposition: Home - Self-Care Reason For Visit: ABD PAIN Discharge Diagnosis: Abdominal Pain /Pyelonephritis /UTI acute renal failure due to dehydration Activity: Resume your previous activity Non-emergency contact: Primary Care Provider Call non-emergency contact if: you have any medication questions Follow-up/Referrals: Cecilia Hidalgo DO [Outside Practitioners] - 10/14/20 11:50 am (Date & Time 10/14/2020 11:50 AM Provider Cecilia Hidalgo DO Department Internal Medicine [facility] ) Diet: Heart Healthy Addtl Attending Provider Instructions: avoid group of medications belonging to NSAIDs group -can cause worsening of your kidney function. List Of these medications includes but not limited to: Diclofenac Ibuprofen, Motrin, Advil Toradol,ketorolac Naproxen, Aleve, Naprosyn You can take Tylenol as needed for pain or fever When buying [id number] pain medications please consult with pharmacy if you are not sure regarding ingredients, as a lot of the pain medications have combination of NSAIDs and Tylenol. Please take all medications as instructed on discharge list below. It is recommended that you follow-up with your primary care physician within 1-2 weeks of hospital discharge to ensure you are still doing well. you appointment is scheduled already please take pro-biotics ( over the counter ) twice daily when taking antibiotic for Urinary tract infection to prevent diarrhea new Medication : Augmentin 1 tablet twice daily for 7 days Potassium tablet 20 meq 1 tablet twice daily for 3 days Lab work : Basic metabolic panel on 10/14 Please call if you have any questions or problems. You can reach a [facility] hospitalist on duty at [facility] 24 hours a day by calling [phone] Pending Studies at Discharge: No Stand-Alone Forms: My [facility], Smoking Cessation Medications and DC Order Prescriptions: New amoxicillin-pot clavulanate [Augmentin] 875-125 mg tablet 1 tab PO BID 7 Days Qty: 14 RF: 0 potassium chloride 20 mEq tablet extended release 20 meq PO DAILY 3 Days Qty: 3 RF: 0 Continued atorvastatin 20 mg Tablet 20 mg PO DAILY RF: 0 aspirin [Aspirin Low Dose] 81 mg Tablet,Delayed Release (Dr/Ec) 81 mg PO DAILY RF: 0 Discharge Orders: Discharge Order (Routine); Ordered 10/07/20 Ordered By: Mary Hdz Admission Data Admit Date/Time: 10/05/20 22:02 Attending Provider: Mary Hdz Admit Provider: Tyree Dixon Primary Care Provider: Blanca Chatterjee Other Providers: Tyree Dixon Other Interventions: Discharge Summary Assessment (RN) Last Done: 10/07/20 13:39
== END 2020-10-07 15:00 | disposition home or self-care (01) | DRG 683 ==
LOC: ED 17:03 → 3N 22:02